=== PATIENT | female | born 1955 | race Caucasian/White ===

== ENCOUNTER 2019-03-07 12:09 | Emergency (ER) | payer MEDICAID, OTHER ==
[~2019-03-07] VITALS: Ht 162.6 cm; Wt 75.7 kg
[2019-03-07] MEDS ORDERED: COZAAR25 MG ORAL (12:14)
[2019-03-07] MEDS ORDERED: SYNTHROID112 MCG ORAL (12:14)
--- NOTE | 2019-03-07 12:20 | NUR ---
ED Nurse Note: PT WALKED IN TO ER TODAY FROM HOME. AOX4. PT C/O SOB FOLLOWED BY PALPITATIONS X AROUND 0930 THIS MORNING. AT BEDSIDE, HR ELEVATED AT 108. NO SIGNS OF RESPIRATORY DISTRESS, RETRACTIONS, OR ACCESSORY MUSCLE USE NOTED. PT ABLE TO SPEAK IN FULL SENTENCES. RR17, O2SAT 98% ON RA.
[2019-03-07 12:21] VITALS: BP 118/62
--- NOTE | 2019-03-07 12:27 | NUR ---
HAND-OFF: REPORT GIVEN TO INOCENCIO AVILA.
--- NOTE | 2019-03-07 12:28 | NUR ---
ED Nurse Note: Received patien tin bed, resting comfortably, patient is reading magazine, on polisher eyeglass frames, vital signs stable.
--- NOTE | 2019-03-07 12:34 | Emergency Room Report ---
History of Present Illness General Chief Complaint: Palpitations Source: Patient Present Illness HPI 63-year-old female presents with shortness of breath that started prior to arrival, patient was walking on 30 miles she felt dyspneic, she had dyspnea on exertion, no chest pain aggravating factors exertion alleviating factors rest, severity moderate, intermittent, she reports mild chest discomfort, she has a history of hypertension hyperlipidemia Allergies: Coded Allergies: No Known Allergies (Unverified , 03/07/19) Patient History Past Medical History: see triage record Reviewed Nursing Documentation: PMH: Agreed; PSxH: Agreed Nursing Documentation-PMH Past Medical History: No History, Except For Hx Hypertension: Yes Review of Systems All Other Systems: negative except mentioned in HPI Physical Exam Vital Signs Date Time Temp Pulse Resp B/P (MAP) Pulse Ox O2 Delivery O2 Flow Rate FiO2 03/07/19 12:12 98.2 111 18 120/64 (82) 96 Room Air Sp02 EP Interpretation: reviewed, normal General Appearance: well appearing, no apparent distress, alert Head: normocephalic, atraumatic Eyes: bilateral eye PERRL, bilateral eye EOMI ENT: uvula midline, moist mucus membranes Neck: supple, thyroid normal, supple/symm/no masses Respiratory: lungs clear, no respiratory distress, no retraction, no accessory muscle use Cardiovascular #1: normal peripheral pulses, no edema, no gallop, no murmur, tachycardia Gastrointestinal: non tender, soft, no guarding, no rebound Musculoskeletal: normal inspection Neurologic: alert, oriented x3 Psychiatric: mood/affect normal Skin: no rash, warm/dry Medical Decision Making Diagnostic Impression: Primary Impression: Palpitations Additional Impression: Chest pain Qualified Codes: R07.9 - Chest pain, unspecified ER Course No evidence pulmonary embolism, pneumothorax, pneumonia. Historically not abrupt in onset, tearing or ripping, pulses symmetric, no evidence of aortic dissection. Patient with chest pain and shortness of breath concerning for ACS Patient currently has no chest pain aspirin was given We will admit patient for observation Patient accepted by Dr. Diaz 2:20pm Patient to be transferred to [facility] Laboratory Tests Test 03/07/19 12:45 03/07/19 12:50 Urine Color Yellow Urine Appearance Clear Urine pH 7 (4.5-8.0) Urine Specific [place] 1.005 (1.005-1.035) Urine Protein Negative (NEGATIVE) Urine Glucose (UA) Negative (NEGATIVE) Urine Ketones Negative (NEGATIVE) Urine Blood 1+ (NEGATIVE) H Urine Nitrite Negative (NEGATIVE) Urine Bilirubin Negative (NEGATIVE) Urine Urobilinogen Normal MG/DL (0.0-1.0) Urine Leukocyte Esterase 1+ (NEGATIVE) H Urine RBC 0-2 /HPF (0 - 2) Urine WBC 0-2 /HPF (0 - 2) Urine Squamous Epithelial Cells Few /LPF (NONE/OCC) Urine Bacteria Occasional /HPF (NONE) White Blood Count 9.8 K/UL (4.8-10.8) Red Blood Count 4.57 M/UL (4.20-5.40) Hemoglobin 15.0 G/DL (12.0-16.0) Hematocrit 44.1 % (37.0-47.0) Mean Corpuscular Volume 97 FL (80-99) Mean Corpuscular Hemoglobin 32.8 PG (27.0-31.0) H Mean Corpuscular Hemoglobin Concent 34.0 G/DL (32.0-36.0) Red Cell Distribution Width 12.0 % (11.6-14.8) Platelet Count 324 K/UL (150-450) Mean Platelet Volume 6.3 FL (6.5-10.1) L Neutrophils (%) (Auto) 61.0 % (45.0-75.0) Lymphocytes (%) (Auto) 27.5 % (20.0-45.0) Monocytes (%) (Auto) 8.6 % (1.0-10.0) Eosinophils (%) (Auto) 1.4 % (0.0-3.0) Basophils (%) (Auto) 1.6 % (0.0-2.0) Prothrombin Time 9.7 SEC (9.30-11.50) Prothrombin Time INR 0.9 (0.9-1.1) PTT 25 SEC (23-33) Sodium Level 140 MMOL/L (136-145) Potassium Level 4.4 MMOL/L (3.5-5.1) Chloride Level 104 MMOL/L (98-107) Carbon Dioxide Level 26 MMOL/L (21-32) Anion Gap 10 mmol/L (5-15) Blood Urea Nitrogen 20 mg/dL (7-18) H Creatinine 0.8 MG/DL (0.55-1.30) Estimate Glomerular Filtration Rate > 60 mL/min (>60) Glucose Level 109 MG/DL (74-106) H Calcium Level 9.5 MG/DL (8.5-10.1) Magnesium Level 1.8 MG/DL (1.8-2.4) Total Bilirubin 0.6 MG/DL (0.2-1.0) Aspartate Amino Transferase (AST) 41 U/L (15-37) H Alanine Aminotransferase (ALT) 34 U/L (12-78) Alkaline Phosphatase 80 U/L (46-116) Total Creatine Kinase 94 U/L (26-308) Creatine Kinase MB 1.1 NG/ML (0.0-3.6) Creatine Kinase MB Relative Index 1.1 Troponin I 0.018 ng/mL (0.000-0.056) Pro-B-Type Natriuretic Peptide 181 pg/mL (0-125) H Total Protein 7.2 G/DL (6.4-8.2) Albumin 4.0 G/DL (3.4-5.0) Globulin 3.2 g/dL Albumin/Globulin Ratio 1.3 (1.0-2.7) Lipase 189 U/L (73-393) Thyroid Stimulating Hormone (TSH) 3.834 uiU/mL (0.358-3.740) Free Thyroxine 0.88 NG/DL (0.76-1.46) Free Triiodothyronine 2.5 pg/mL (2.3-4.2) Urine Opiates Screen Negative (NEGATIVE) Urine Barbiturates Screen Negative (NEGATIVE) Phencyclidine (PCP) Screen Negative (NEGATIVE) Urine Amphetamines Screen Negative (NEGATIVE) Urine Benzodiazepines Screen Negative (NEGATIVE) Urine Cocaine Screen Negative (NEGATIVE) Urine Marijuana (THC) Screen Negative (NEGATIVE) EKG Diagnostic Results EKG Time: 12:24 EP Interpretation: Sinus tachycardia, rate 108, QTc 447, no acute ST elevations , left axis dev Rhythm Strip Diag. Results Rhythm Strip Time: 12:33 EP Interpretation: yes Rate: 109 Rhythm: other - Sinus tachycardia no PVC no ectopy Chest X-Ray Diagnostic Results Chest X-Ray Diagnostic Results : Chest X-Ray Ordered: Yes # of Views/Limited/Complete: 1 View Indication: Shortness of Breath EP Interpretation: Yes Interpretation: no consolidation, no effusion, no pneumothorax, no acute cardiopulmonary disease Impression: No acute disease Electronically Signed by: Carlos Delgado MD Last Vital Signs Date Time Temp Pulse Resp B/P (MAP) Pulse Ox O2 Delivery O2 Flow Rate FiO2 03/07/19 12:21 98.4 108 17 118/62 98 Room Air Disposition: XFER [facility] Pres Condition: Stable Carlos Delgado MD Mar 07, 2019 12:34
[2019-03-07 13:10] LABS: APPEARANCE,URINE CLEAR; BILIRUBIN, URINE NEGATIVE (NEGATIVE); GLUCOSE, URINE (UA) NEGATIVE (NEGATIVE); KETONES,URINE NEGATIVE (NEGATIVE); LEUKOCYTE ESTERASE ,URINE 1+ (NEGATIVE); NITRITE,URINE NEGATIVE (NEGATIVE); PH,URINE 7 (4.5-8.0); PROTEIN,URINE NEGATIVE (NEGATIVE); UROBILINOGEN,URINE NORMAL MG/DL (0.0-1.0)
[2019-03-07 13:11] LABS: BASOPHILS % (AUTO) 1.6 % (0.0-2.0); EOSINOPHILS % (AUTO) 1.4 % (0.0-3.0); HEMATOCRIT 44.1 % (37.0-47.0); LYMPHOCYTES % (AUTO) 27.5 % (20.0-45.0); MEAN CORPUSCULAR VOLUME 97 FL (80-99); MONOCYTES % (AUTO) 8.6 % (1.0-10.0); PLATELET COUNT 324 K/UL (150-450); RED BLOOD COUNT 4.57 M/UL (4.20-5.40); WHITE BLOOD COUNT 9.8 K/UL (4.8-10.8)
[2019-03-07 13:13] LABS: COLOR,URINE YELLOW
[2019-03-07 13:21] LABS: INR 0.9 (0.9-1.1)
[2019-03-07 13:24] LABS: ANION GAP 10 mmol/L (5-15); BLOOD UREA NITROGEN 20 mg/dL (7-18); CALCIUM 9.5 MG/DL (8.5-10.1); CARBON DIOXIDE 26 MMOL/L (21-32); CHLORIDE 104 MMOL/L (98-107); CREATININE 0.8 MG/DL (0.55-1.30); POTASSIUM 4.4 MMOL/L (3.5-5.1); SODIUM 140 MMOL/L (136-145)
[2019-03-07 13:25] VITALS: BP 128/62
[2019-03-07 13:38] LABS: ALANINE AMINOTRANSFERASE 34 U/L (12-78); ALBUMIN/GLOBULIN RATIO 1.3 (1.0-2.7); ALKALINE PHOSPHATASE 80 U/L (46-116); ASPARTATE AMINO TRANSFERASE 41 U/L (15-37); BILIRUBIN,TOTAL 0.6 MG/DL (0.2-1.0); CKMB 1.1 NG/ML (0.0-3.6); CREATINE KINASE 94 U/L (26-308)
--- NOTE | 2019-03-07 14:21 | Diagnostic Imaging Report ---
Indication: Cough Technique: One view of the chest Comparison: none Findings: Lungs and pleural spaces are clear. Heart size is normal Impression: No acute process
--- NOTE | 2019-03-07 16:00 | NUR ---
ED Nurse Note: Glasco and water provided to patient as patient requested. Dr Karley parker for patient eating.
[2019-03-07 16:38] VITALS: BP 132/72
--- NOTE | 2019-03-07 16:44 | NUR ---
ED Nurse Note: Report given to Marta PAINTER at [facility] Endorsed all plan of care to Marta PAINTER.
[2019-03-07 17:56] VITALS: BP 132/72
--- NOTE | 2019-03-07 17:56 | NUR ---
ED Nurse Note: Patient is being transferred to [facility] via [facility] ambulance with all of her belongings.
--- NOTE | 2019-03-10 15:24 | Cardiology Report ---
APPROVED REPORT EKG Measurement Heart [id number] 130P [id number] Sinus tachycardia Otherwise normal ECG
== END 2019-03-07 17:56 | disposition short-term general hospital (02) ==
LOC: EMR 12:29
DX: R00.2 Palpitations (principal); R07.9 Chest pain, unspecified; R06.00 Dyspnea, unspecified; I10 Essential (primary) hypertension; E78.5 Hyperlipidemia, unspecified
CPT/HCPCS: 36415; 71045; 80053; 80307; 81003; 82550; 82553; 83690; 83735; 83880; 84439; 84443; 84481; 84484; 85025; 85610; 85730; 93005; 96360; 99285

== ENCOUNTER 2019-07-09 14:55 | Emergency (ER) | payer MEDICAID ==
[~2019-07-09] VITALS: Ht 162.6 cm; Wt 74.8 kg
[~2019-07-09 14:55] MED LIST: COZAAR25 MG ORAL; SYNTHROID112 MCG ORAL
[2019-07-09] MEDS ORDERED: Vancomycin 1.5 GM in NS 275 ML IVPB ONE (16:15)
[2019-07-09] MEDS ORDERED: HYDROcodone/Acetamin 5/325 tab ORAL ONE (16:15)
--- NOTE | 2019-07-09 16:15 | Emergency Room Report ---
History of Present Illness General Chief Complaint: Skin Rash/Abscess Source: Patient Present Illness HPI 63-year-old female presents to the emergency department complaining of 8 out of 10 severity tenderness, swelling, erythema and warmth to discrete areas on the left upper arm the right ankle and the right cheek x3 days. 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 Patient states that 2 of the locations are correlated with sites where she had previous surgeries. Patient reports the surgeries were performed in 2000 without complications. She denies fevers or chills. She reports mild headache without nausea, vomiting, neck pain or stiffness. pt. denies fevers, chills or swollen tender lymph nodes. Denies lesions/rashes elsewhere on the body. Denies new medications or body washes or creams. Denies swelling of the lips, tongue , throat or airway. Denies wheezing , or shortness of breath. Denies recent travel, recent illness or ill contacts. denies blisters, oral lesions, or sloughing of the skin Allergies: Coded Allergies: No Known Allergies (Unverified , 03/07/19) Patient History Past Medical History: see triage record, psych hx Past Surgical History: other - left forearm and right lateral ankle Pertinent Family History: none Last Menstrual Period: na Now: No Reviewed Nursing Documentation: PMH: Agreed; PSxH: Agreed Nursing Documentation-PMH Past Medical History: No History, Except For Hx Hypertension: Yes History Of Psychiatric Problem: Yes - depression Review of Systems All Other Systems: negative except mentioned in HPI Physical Exam Vital Signs Date Time Temp Pulse Resp B/P (MAP) Pulse Ox O2 Delivery O2 Flow Rate FiO2 07/09/19 15:06 99.5 104 18 127/64 (85) 97 Room Air Sp02 EP Interpretation: reviewed, normal General Appearance: no apparent distress, alert, GCS 15, non-toxic Head: normocephalic, atraumatic Eyes: bilateral eye normal inspection, bilateral eye PERRL ENT: hearing grossly normal, normal voice Neck: full range of motion Respiratory: lungs clear, normal breath sounds, speaking full sentences Cardiovascular #1: regular rate, rhythm, no edema Genitourinary: no CVA tenderness Musculoskeletal: back normal, normal range of motion, gait/station normal, tender - left forearm and lateral right ankle. -ST erythema and warmth abouth old surgical scar. Neurologic: alert, motor strength/tone normal, oriented x3, sensory intact, responsive, speech normal Psychiatric: judgement/insight normal Skin: other - left forearm and lateral right ankle with associated-ST erythema and warmth abouth old surgical scar. there is small area of erythema and warmth to the right cheek, no palpable fluctuance in any of the sites. Lymphatic: no adenopathy Medical Decision Making PA Attestation Dr. Barba is my supervising Physician whom patient management has been discussed with. Diagnostic Impression: Primary Impression: Cellulitis of multiple sites ER Course 63-year-old female presents to the emergency department complaining of 8 out of 10 severity tenderness, swelling, erythema and warmth to discrete areas on the left upper arm the right ankle and the right cheek x3 days. 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 Patient states that 2 of the locations are correlated with sites where she had previous surgeries. Patient reports the surgeries were performed in 2000 without complications. She denies fevers or chills. She reports mild headache without nausea, vomiting, neck pain or stiffness. pt. denies fevers, chills or swollen tender lymph nodes. Denies lesions/rashes elsewhere on the body. Denies new medications or body washes or creams. Denies swelling of the lips, tongue , throat or airway. Denies wheezing , or shortness of breath. Denies recent travel, recent illness or ill contacts. denies blisters, oral lesions, or sloughing of the skin Ddx considered but are not limited to cellulitis, Necrotizing fasciitis, allergic reaction, burn, dermatitis, fracture, d/L, gout, osteomyelitis, septicemia just to name a few Vital signs: are WNL, pt. is afebrile H&PE are most consistent with cellulitis of multiple sites will administer loading dose of IV antibiotics and check labs. ORDERS: -CBC: WNL -BMP: WNL -UA: WNL ED INTERVENTIONS: -Vancomycin 1g IV -[place] PO Discussed with this patient that we will try outpatient oral antibiotics and to have a 48-hour wound check with either her PCP or back here at the emergency department. Discussed with patient that if she has worsening of her current symptoms to return immediately to the ED. DISCHARGE: At this time pt. is stable for d/c to home. Will provide printed patient care instructions, and any necessary prescriptions. Care plan and follow up instructions have been discussed with the patient prior to discharge. Labs Test 07/09/19 15:25 07/09/19 16:45 Urine Color Yellow Urine Appearance Clear Urine pH 6 (4.5-8.0) Urine Specific [place] 1.010 (1.005-1.035) Urine Protein Negative (NEGATIVE) Urine Glucose (UA) Negative (NEGATIVE) Urine Ketones 1+ (NEGATIVE) Urine Blood 1+ (NEGATIVE) Urine Nitrite Negative (NEGATIVE) Urine Bilirubin Negative (NEGATIVE) Urine Urobilinogen Normal MG/DL (0.0-1.0) Urine Leukocyte Esterase Negative (NEGATIVE) Urine RBC 2-4 /HPF (0 - 2) Urine WBC 0-2 /HPF (0 - 2) Urine Squamous Epithelial Cells Few /LPF (NONE/OCC) Urine Bacteria Few /HPF (NONE) White Blood Count 10.8 K/UL (4.8-10.8) Red Blood Count 3.94 M/UL (4.20-5.40) Hemoglobin 12.8 G/DL (12.0-16.0) Hematocrit 36.5 % (37.0-47.0) Mean Corpuscular Volume 93 FL (80-99) Mean Corpuscular Hemoglobin 32.5 PG (27.0-31.0) Mean Corpuscular Hemoglobin Concent 35.0 G/DL (32.0-36.0) Red Cell Distribution Width 10.4 % (11.6-14.8) Platelet Count 362 K/UL (150-450) Mean Platelet Volume 5.9 FL (6.5-10.1) Neutrophils (%) (Auto) 63.4 % (45.0-75.0) Lymphocytes (%) (Auto) 24.9 % (20.0-45.0) Monocytes (%) (Auto) 8.3 % (1.0-10.0) Eosinophils (%) (Auto) 1.9 % (0.0-3.0) Basophils (%) (Auto) 1.5 % (0.0-2.0) Sodium Level 138 MMOL/L (136-145) Potassium Level 3.6 MMOL/L (3.5-5.1) Chloride Level 102 MMOL/L (98-107) Carbon Dioxide Level 26 MMOL/L (21-32) Anion Gap 10 mmol/L (5-15) Blood Urea Nitrogen 10 mg/dL (7-18) Creatinine 0.6 MG/DL (0.55-1.30) Estimat Glomerular Filtration Rate > 60 mL/min (>60) Glucose Level 90 MG/DL (74-106) Calcium Level 8.7 MG/DL (8.5-10.1) Last Vital Signs Date Time Temp Pulse Resp B/P (MAP) Pulse Ox O2 Delivery O2 Flow Rate FiO2 07/09/19 15:06 99.5 104 18 127/64 (85) 97 Room Air Disposition: HOME, SELF-CARE Condition: Stable Scripts Ibuprofen* (MOTRIN*) 600 Mg Tablet 600 MG ORAL THREE TIMES A DAY, #30 TAB 0 Refills Prov: Celina Joya 07/09/19 Acetaminophen With Codeine (T#3) (TYLENOL #3 TAB*) Y Tab 1 TAB ORAL Q6H PRN for For Pain, #6 TAB Prov: Celina Joya 07/09/19 Clindamycin Hcl (CLINDAMYCIN HCL) 300 Mg Capsule 300 MG ORAL FOUR TIMES A DAY for 7 Days, #28 CAP Prov: Celina Joya 07/09/19 Patient Instructions: Cellulitis, [id number] Additional Instructions: 48 HOUR RE-CHECK Take medications as directed. Follow up with a Primary Care Provider, URGENT CARE, OR ED WITHIN 48 Hours For WOUND CHECK, even if your symptoms have resolved. Return sooner to ED if new symptoms occur, or current symptoms become worse. - Please note that this Emergency Department Report was dictated using [employer] disability teacher technology software, occasionally this can lead to erroneous entry secondary to interpretation by the dictation equipment. Celina Joya Jul 09, 2019 16:15
[2019-07-09 17:05] VITALS: BP 127/64
[2019-07-09 17:17] LABS: BASOPHILS % (AUTO) 1.5 % (0.0-2.0); EOSINOPHILS % (AUTO) 1.9 % (0.0-3.0); HEMATOCRIT 36.5 % (37.0-47.0); HEMOGLOBIN 12.8 G/DL (12.0-16.0); LYMPHOCYTES % (AUTO) 24.9 % (20.0-45.0); MEAN CORPUSCULAR VOLUME 93 FL (80-99); MONOCYTES % (AUTO) 8.3 % (1.0-10.0); NEUTROPHILS % (AUTO) 63.4 % (45.0-75.0); PLATELET COUNT 362 K/UL (150-450); RED BLOOD COUNT 3.94 M/UL (4.20-5.40); RED CELL DISTRIBUTION WIDTH 10.4 % (11.6-14.8); WHITE BLOOD COUNT 10.8 K/UL (4.8-10.8)
[2019-07-09 17:42] LABS: ANION GAP 10 mmol/L (5-15); BLOOD UREA NITROGEN 10 mg/dL (7-18); CALCIUM 8.7 MG/DL (8.5-10.1); CARBON DIOXIDE 26 MMOL/L (21-32); CHLORIDE 102 MMOL/L (98-107); CREATININE 0.6 MG/DL (0.55-1.30); POTASSIUM 3.6 MMOL/L (3.5-5.1); SODIUM 138 MMOL/L (136-145)
[2019-07-09 18:30] LABS: APPEARANCE,URINE CLEAR; BILIRUBIN, URINE NEGATIVE (NEGATIVE); GLUCOSE, URINE (UA) NEGATIVE (NEGATIVE); KETONES,URINE 1+ (NEGATIVE); LEUKOCYTE ESTERASE ,URINE NEGATIVE (NEGATIVE); NITRITE,URINE NEGATIVE (NEGATIVE); PH,URINE 6 (4.5-8.0); PROTEIN,URINE NEGATIVE (NEGATIVE); UROBILINOGEN,URINE NORMAL MG/DL (0.0-1.0)
[2019-07-09 18:33] LABS: COLOR,URINE YELLOW
[2019-07-09] MEDS ORDERED: CLINDAMYCIN HC300 MG ORAL (18:59)
[2019-07-09] MEDS ORDERED: IBUPROFEN600 MG ORAL (19:00)
[2019-07-09] MEDS ORDERED: ACETAMINOPHEN-1 EAC1 ORAL (19:00)
[2019-07-09 19:19] VITALS: BP 124/68
[2019-07-11] MEDS ORDERED: IBUPROFEN600 MG ORAL (17:41)
[2019-07-11] MEDS ORDERED: MUPIROCIN15 GM TOPIC (17:41)
[2019-07-11] MEDS ORDERED: ROBAXIN-500MG ORAL (17:41)
== END 2019-07-09 19:20 | disposition home or self-care (01) ==
LOC: EMR 15:05
DX: L03.114 Cellulitis of left upper limb (principal); L03.115 Cellulitis of right lower limb; L03.211 Cellulitis of face; I10 Essential (primary) hypertension; F32.9 Major depressive disorder, single episode, unspecified; Z86.14 Personal history of Methicillin resistant Staphylococcus aureus infection; R51 Headache
CPT/HCPCS: 36415; 80048; 81003; 85025; 96365; 96366; J3370; J7050; Z7502; 99284

== ENCOUNTER 2019-08-23 07:40 | Emergency (ER) | payer MEDICAID ==
[~2019-08-23] VITALS: Ht 162.6 cm; Wt 70.3 kg
[~2019-08-23 07:40] MED LIST changes: +ACETAMINOPHEN-1 EAC1 ORAL; +CLINDAMYCIN HC300 MG ORAL; +IBUPROFEN600 MG ORAL; +MUPIROCIN15 GM TOPIC; +ROBAXIN-500MG ORAL
--- NOTE | 2019-08-23 07:42 | NUR ---
pt. not in room
--- NOTE | 2019-08-23 08:02 | NUR ---
ED Nurse Note: Patient states she fell from a stool on Monday while changing a light bulb and landed in a sitting position on her sacral area. Patient has large, diffuse bruise. States it is painful and itches, but denies any trouble walking. Patient AxO x 4, no s/s of acute distress. Dr. Crandall at bedside.
[2019-08-23 08:10] VITALS: BP 139/84
[2019-08-23] MEDS ORDERED: ACETAMINOPHEN-1 EAC1 ORAL (08:10)
[2019-08-23 08:12] VITALS: BP 139/84
--- NOTE | 2019-08-23 08:12 | NUR ---
ER DISCHARGE NOTE: Patient is cleared to be discharged per ERMD, pt is aox4, on room air, with stable vital signs. pt was given dc and prescription instructions, pt was able to verbalize understanding, pt id band. pt is able to ambulate with steady gait. pt took all belongings.
--- NOTE | 2019-08-23 08:44 | Emergency Room Report ---
History of Present Illness General Chief Complaint: Multiple Trauma/Fall Source: Patient Present Illness HPI 63-year-old female presents ED for evaluation of bruise to her buttocks. States that last Monday she had a mechanical fall and landed on her buttock. Notes is been bruised and swollen since. Pain is dull, 7 out of 10, nonradiating. Denies any hip pain. Denies any leg pain. Is able to walk without difficulty. No other aggravating relieving factors. Denies any other associated symptoms Allergies: Coded Allergies: No Known Allergies (Unverified , 03/07/19) Patient History Past Medical History: HTN, seizures Past Surgical History: none Pertinent Family History: none Social History: Denies: smoking, alcohol use, drug use Now: No Immunizations: UTD Reviewed Nursing Documentation: PMH: Agreed; PSxH: Agreed Nursing Documentation-PMH Past Medical History: No History, Except For Hx Hypertension: Yes Hx Seizures: Yes Review of Systems All Other Systems: negative except mentioned in HPI Physical Exam Vital Signs Date Time Temp Pulse Resp B/P (MAP) Pulse Ox O2 Delivery O2 Flow Rate FiO2 08/23/19 07:46 98.2 107 19 139/84 (102) 99 Room Air Sp02 EP Interpretation: reviewed, normal General Appearance: no apparent distress, alert, GCS 15, non-toxic Head: normocephalic Eyes: bilateral eye normal inspection, bilateral eye PERRL ENT: normal ENT inspection Neck: normal inspection Respiratory: normal inspection Cardiovascular #1: normal inspection Gastrointestinal: normal inspection Rectal: deferred Genitourinary: no CVA tenderness Musculoskeletal: back normal, normal range of motion, gait/station normal, non- tender Neurologic: alert, motor strength/tone normal, oriented x3, sensory intact, responsive, speech normal Psychiatric: judgement/insight normal, memory normal, mood/affect normal, no suicidal/homicidal ideation Skin: other - healing bruise to bilateral buttocks. no erythema/induration Lymphatic: normal inspection Medical Decision Making Diagnostic Impression: Primary Impression: Traumatic hematoma of buttock Qualified Codes: S30.0XXA - Contusion of lower back and pelvis, initial encounter ER Course Hospital Course 63 yo F presents to ED c/o bruising to buttocks x 1 week Differential diagnoses include: Cellulitis, dermatitis, insect bite, abscess Clinical course Patient placed on stretcher. After initial history, physical exam reveals a elderly female in no acute distress. On exam there appears to be a healing hematoma to the bilateral buttocks. No induration or erythema. No discharge. No hip pain. No back pain. I discussed findings with patient. Afebrile, nontoxic-appearing. It appears to be healing as there are areas of yellowish discoloration which indicate healing and resolution I encourage warm compresses. Will discharge home. I will provide referrals. Will prescribe Tylenol 3 for pain. Diagnosis - traumatic hematoma of buttock stable and discharged to home with prescription for Tylenol #3. Instructed to followup with PMD. Instructed return to ED if symptoms recur or worsen Last Vital Signs Date Time Temp Pulse Resp B/P (MAP) Pulse Ox O2 Delivery O2 Flow Rate FiO2 08/23/19 08:12 98.2 99 19 139/84 99 Room Air Status: improved Disposition: HOME, SELF-CARE Condition: Stable Referrals: [facility] Patient Instructions: Hematoma, [id number] Orlando Crandall MD Aug 23, 2019 08:43
== END 2019-08-23 08:15 | disposition home or self-care (01) ==
LOC: EMR 08:12
DX: S30.0XXA Contusion of lower back and pelvis, initial encounter (principal); I10 Essential (primary) hypertension; G40.909 Epilepsy, unspecified, not intractable, without status epilepticus; W01.0XXA Fall on same level from slipping, tripping and stumbling without subsequent striking against object, initial encounter; Y93.9 Activity, unspecified; Y92.9 Unspecified place or not applicable
CPT/HCPCS: 99281

== ENCOUNTER 2020-01-23 17:58 | Emergency (ER) | payer MEDICAID ==
[~2020-01-23] VITALS: Ht 162.6 cm; Wt 68.0 kg
[2020-01-23 18:20] VITALS: BP 136/75
--- NOTE | 2020-01-23 18:40 | Diagnostic Imaging Report ---
EXAM: CT Head Without Intravenous Contrast CLINICAL HISTORY: Headache. Injury. TECHNIQUE: Axial computed tomography images of the head/brain without intravenous contrast. CTDI is 53.4 mGy and DLP is 1 or 9 8.9 mGy-cm. One or more of the following dose reduction techniques were used: automated exposure control, adjustment of the mA and/or kV according to patient size, use of iterative reconstruction technique. COMPARISON: None. FINDINGS: Brain: Minimal small vessel disease of aging. No abnormal extra-axial collection. No hemorrhage. Midline shift: No midline shift or mass-effect. Ventricles: There is prominence of the ventricular system, cortical sulci, basilar cisterns, compatible with age related atrophy. Bones/joints: The calvarium is unremarkable. No acute fracture. Soft tissues: A 1.3 cm right occipital scalp hematoma is noted. Sinuses: Visualized sinuses are unremarkable. Mastoid air cells: Mastoid air cells are well pneumatized. IMPRESSION: 1. 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 2. No acute intracranial pathology. 3. If there is concern for etiology such as early acute lacunar infarct, magnetic resonance imaging of the brain with diffusion-weighted sequences should be performed. 4. Small right occipital scalp hematoma.
--- NOTE | 2020-01-23 19:01 | Emergency Room Report ---
History of Present Illness General Chief Complaint: Laceration Source: Patient Present Illness HPI 64-year-old female with history of hypertension currently controlled with medication here status post head laceration. Reports that she had her head tilted down garbage can last night at 9 PM as she hit the back of her head to the top portion of the garbage bag. Patient reports that she passed out after. A lot of dried blood noted in the head. Reports that she took Tylenol earlier today for pain and decided to come to the ED later tonight. Denies any dizziness, nausea vomiting, bleeding at this time. Denies any blurry vision. Is up-to-date with tetanus shot. Reports that she cannot take any ibuprofen as she is on aspirin and does not want to have her blood. Patient does not want her hair to be cut. A 1 cm laceration noted on posterior parietal occipital region which is already closing through secondary intention. Patient speaking full sentences, neurovascularly intact. Allergies: Coded Allergies: No Known Allergies (Unverified , 03/07/19) COVID-19 Screening Contact w/high risk pt: No Experienced COVID-19 symptoms?: No COVID-19 Testing performed RESOLUTE PROFESSIONAL: No Patient History Past Medical History: see triage record Past Surgical History: none Pertinent Family History: none Now: No Immunizations: UTD Reviewed Nursing Documentation: PMH: Agreed; PSxH: Agreed Nursing Documentation-PMH Hx Hypertension: Yes Hx Seizures: Yes Review of Systems All Other Systems: negative except mentioned in HPI Physical Exam Vital Signs Date Time Temp Pulse Resp B/P (MAP) Pulse Ox O2 Delivery O2 Flow Rate FiO2 01/23/20 18:03 98.8 114 16 133/66 (88) 96 Room Air Sp02 EP Interpretation: reviewed General Appearance: no apparent distress, alert, GCS 15, non-toxic Head: other - 1 cm closing laceration posterior occipital parietal lobe Eyes: bilateral eye normal inspection, bilateral eye PERRL ENT: hearing grossly normal, normal pharynx, no angioedema, normal voice Neck: full range of motion, supple/symm/no masses Respiratory: chest non-tender, lungs clear, normal breath sounds, no rhonchi, speaking full sentences Cardiovascular #1: regular rate, rhythm, no edema Gastrointestinal: normal bowel sounds, non tender, soft, non-distended, no guarding, no rebound Genitourinary: no CVA tenderness Musculoskeletal: back normal Neurologic: alert, motor strength/tone normal, oriented x3, sensory intact, responsive, speech normal Psychiatric: judgement/insight normal, memory normal, mood/affect normal, no suicidal/homicidal ideation Skin: laceration - Closing laceration posterior occipital parietal lobe Lymphatic: no adenopathy Medical Decision Making PA Attestation All diagnosis and treatment plans were discussed and reviewed by my supervising physician Dr. Seymour Diagnostic Impression: Primary Impression: Laceration of head Additional Impression: Head contusion ER Course 64-year-old female with history of hypertension currently controlled with medication here status post head laceration. Reports that she had her head tilted down garbage can last night at 9 PM as she hit the back of her head to the top portion of the garbage bag. Patient reports that she passed out after. A lot of dried blood noted in the head. Reports that she took Tylenol earlier today for pain and decided to come to the ED later tonight. Denies any dizziness, nausea vomiting, bleeding at this time. Denies any blurry vision. Is up-to-date with tetanus shot. Reports that she cannot take any ibuprofen as she is on aspirin and does not want to have her blood. Patient does not want her hair to be cut. A 1 cm laceration noted on posterior parietal occipital region which is already closing through secondary intention. Patient speaking full sentences, neurovascularly intact. Ddx considered but are not limited to: cerebral hematoma, concussion, skull fracture, head contusion, deep laceration, superficial laceration Vital signs: are WNL, pt. is afebrile H&PE are most consistent with: Superficial closing laceration scalp, head contusion ORDERS: head CT no contrast, Keflex, Tylenol ED INTERVENTIONS: Wound clean and dressed, as it is too late for reinaldo this is 21 hours later post laceration. First dose of Keflex and Tylenol DISCHARGE: At this time pt. is stable for d/c to home. Will provide printed patient care instructions, and any necessary prescriptions. Care plan and follow up instructions have been discussed with the patient prior to discharge. Patient take medication as directed, follow primary care provider, increase oral hydration, if worsening symptoms return to the emergency room CT/MRI/US Diagnostic Results CT/MRI/US Diagnostic Results : Imaging Test Ordered: Head CT no contrast Impression 1. 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 2. No acute intracranial pathology. 3. If there is concern for etiology such as early acute lacunar infarct, magnetic resonance imaging of the brain with diffusion-weighted sequences should be performed. 4. Small right occipital scalp hematoma. Last Vital Signs Date Time Temp Pulse Resp B/P (MAP) Pulse Ox O2 Delivery O2 Flow Rate FiO2 01/23/20 18:20 98.5 83 16 136/75 97 Room Air Disposition: HOME, SELF-CARE Condition: Stable Scripts Acetaminophen* (TYLENOL EXTRA STRENGTH*) 500 Mg Tablet 500 MG ORAL Q6H PRN for Mild Pain/Temp > 100.5, #30 TAB 0 Refills Prov: Ra Madrid 01/23/20 Cephalexin* (KEFLEX*) 500 Mg Capsule 500 MG ORAL EVERY 6 HOURS for 7 Days, #28 CAP Prov: Ra Madrid 01/23/20 Referrals: NON PHYSICIAN (PCP) Patient Instructions: Laceration Care, Adult Additional Instructions: Take medication as directed, follow-up with your primary care provider, if worsening symptoms return to the emergency room Ra Madrid Jan 23, 2020 19:01
[2020-01-23] MEDS ORDERED: TYLENOL EXTRA500 MG ORAL (19:02)
[2020-01-23] MEDS ORDERED: CEPHALEXIN500 MG ORAL (19:02)
[2020-01-23 19:15] VITALS: BP 136/75
[2020-01-23] MEDS ORDERED: Cephalexin 500mg cap ORAL ONE (19:15)
[2020-01-23] MEDS ORDERED: Acetaminophen 500mg (ES) tab ORAL ONE (19:15)
== END 2020-01-23 19:20 | disposition home or self-care (01) ==
LOC: EMR 18:32
DX: S01.01XA Laceration without foreign body of scalp, initial encounter (principal); I10 Essential (primary) hypertension; G40.909 Epilepsy, unspecified, not intractable, without status epilepticus; W22.8XXA Striking against or struck by other objects, initial encounter; Y93.89 Activity, other specified; Y92.9 Unspecified place or not applicable
CPT/HCPCS: 70450; Z7502; 99284

== ENCOUNTER 2020-08-26 22:36 | Emergency (ER) | payer MEDICAID ==
[~2020-08-26] VITALS: Ht 162.6 cm; Wt 63.5 kg
[~2020-08-26 22:36] MED LIST changes: +CEPHALEXIN500 MG ORAL; +TYLENOL EXTRA500 MG ORAL
--- NOTE | 2020-08-26 22:50 | NUR ---
ED Nurse Note: Patient walked in to the ED complaining of toothache from the left side of her mouth that started this morning. Patient reports that she has braces, has not had a clean in over a year due to the pandemic. Denies any fever, chills. AOX4, cooperative.
[2020-08-26] MEDS ORDERED: AMOXICILLIN500 MG ORAL (23:12)
--- NOTE | 2020-08-26 23:12 | Emergency Room Report ---
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 Patient states she fell asleep on her left face and thinks that her braces pushed into the left cheek, causing "swelling". She took one amoxicillin that she had leftover at home, which she states drastically improved her symptoms. She denies fever, neck pain/stiffness, photophobia, headache, vision changes, visual blurring, stridor, drooling, difficulty swallowing, shortness of breath, wheezing, chest pain, abdominal pain, back pain or any other symptoms. She states that she has regular follow-up with a dentist which she will see in the morning. The patient's symptoms were gradual onset, severity was moderate, duration since 1 day. Quality: Swollen Past medical history: Anxiety, hypertension, dyslipidemia, hypothyroidism Past surgical history: Left arm orthopedic surgery, right ankle orthopedic surgery, PAD surgery, tonsillectomy, breast augmentation Smoking: Denies Alcohol use: Occasional Drug use: Denies Review of systems: CONST: No fevers or chills, No night sweats PULMONARY: No productive cough, No shortness of breath CARDIAC: No chest pain, No palpitations GI: No vomiting, No diarrhea , No melena_or_BRBPR : No dysuria, No hematuria, No discharge NEURO: No new_focal_weakness_or_numbness, No confusion, No vision changes 14 point Review of Systems is otherwise negative except per HPI Physical Exam: GENERAL: Awake_alert_ nontoxic, no acute distress Spo2 99% on RA -normal EYES: Extraocular muscles are intact. Conjunctivae clear. Lids without swelling ENT: No hoarse voice, drooling, stridor, or trismus. Trace amount of left facial cellulitis. No brawny submandibular edema or indication of Anoop a ngina. Speaks in full and complete sentences. Poor dentition. Multiple dental caries. No visualized tonsillar exudate. No soft palate/hard palate edema. No tenderness to palpation over anterior trachea. Uvula is midline. External nose and ear normal_in_appearance. Oropharynx clear. Head_atraumatic, Moist_oral_mucosa NECK: No JVD. No meningismus. No thyromegaly. Supple. Trachea midline RESP: Normal respiratory effort. Symmetric rise. No stridor. Clear_to_auscultation_No_rales_No_wheezes CARDIAC: Regular rate and regular rhytm. No_significant pedal edema. ABDOMEN: Soft. Nondistended. Nontender_No_rebound_or_guarding. MSK: Normal muscle tone, without rigidity. Extremities without asymmetric deformity or swelling. SKIN: Warm and dry. No visible cyanosis or pallor NEUROLOGIC: Alert, oriented x3. Motor_and_sensation_grossly_intact. No truncal ataxia. Gait_normal Psych: Normal mood and affect, normal judgment and insight - COORDINATION OF CARE Case was discussed with: Patient Medical Decision Making/Plan: Differential diagnosis includes dental caries, Burns 2 fracture, facial cellulitis, viral pharyngitis, strep pharyngitis, viral syndrome, without evidence of retropharyngeal abscess, epiglottitis, peritonsillar abscess, Larry wig's angina, among others. No evidence for meningitis or encephalitis. On exam, patient has trace amount of left facial cellulitis. No discrete abscess palpated. Suspect odontogenic infectious source secondary to poor dentition. She has reliable outpatient follow-up for dentist and will likely require tooth extraction and tooth cleaning. No evidence of airway compromise, patient tolerating orals without any respiratory distress, no drooling or stridor. No evidence of any emergent ENT condition. Patient received her first dose of amoxicillin here in emergency department. Will discharge with Rx for amoxicillin. Patient advised to see a dentist in 12 hours. Patient appears stable for discharge home and follow-up with her regular doctor. Pertinent results reviewed with the patient. I educated the patient on the current treatment plan including the risks, benefits, and alternatives. I also discussed the extent and limitations of the current evaluation. The patient expressed understanding and agreement with plan. I recommended PMD follow-up within 1-2 days. Also advised that the patient return to the Emergency Department as soon as possible if they experience any new, persistent, or worsening symptoms. 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 COVID-19 Screening: Negative COVID-19 COVID-19 Testing Source: [facility] Patient History Now: No Nursing Documentation-PMH Hx Hypertension: Yes Hx Seizures: Yes Physical Exam Vital Signs Date Time Temp Pulse Resp B/P (MAP) Pulse Ox O2 Delivery O2 Flow Rate FiO2 08/26/20 22:47 98.4 90 20 138/78 (98) 98 Sp02 EP Interpretation: reviewed, normal Medical Decision Making Diagnostic Impression: Primary Impression: Facial abscess Additional Impressions: Tooth ache Dental caries Last Vital Signs Date Time Temp Pulse Resp B/P (MAP) Pulse Ox O2 Delivery O2 Flow Rate FiO2 08/26/20 22:47 98.4 90 20 138/78 (98) 98 Disposition: HOME, SELF-CARE Admit Decision Time: 23:11 Condition: Stable Scripts Amoxicillin* (AMOXIL*) 500 Mg Capsule 500 MG ORAL THREE TIMES A DAY, #21 CAP Prov: Dinorah Seymour D.O. 08/26/20 Referrals: NON PHYSICIAN (PCP) Patient Instructions: Cellulitis, [id number], Dental Pain Additional Instructions: Instructions for patient/guest experience specialist: Follow up with your dentist in 1-2 days. Follow-up with your doctor sooner if your condition requires a more timely cli nical reevaluation. Return to the emergency department immediately if you feel that your condition is worsening or if you have any new or concerning symptoms. Review your discharge instructions and take any prescriptions given as instructed. [facility] PROVIDES FREE OR LOW-COST HEALTH SERVICES TO PEOPLE WHO CAN SHOW PROOF THAT THEY LIVE IN [facility]. TO FIND MORE CLINICS PARTNERED WITH THE [facility] TO PROVIDE SERVICE, PLEASE CALL . Dinorah Seymour D.O. Aug 26, 2020 23:12
--- NOTE | 2020-08-26 23:25 | NUR ---
ER DISCHARGE NOTE: Patient is cleared to be discharged per ERMD, pt is aox4, on room air, with stable vital signs. pt was given dc and prescription instructions, pt was able to verbalize understanding, pt id band removed. pt is able to ambulate with steady gait. pt took all belongings.
[2020-08-26 23:38] VITALS: BP 138/78
== END 2020-08-26 23:25 | disposition home or self-care (01) ==
LOC: EMR 23:00
DX: L02.01 Cutaneous abscess of face (principal); K08.89 Other specified disorders of teeth and supporting structures; K02.9 Dental caries, unspecified; I10 Essential (primary) hypertension; G40.909 Epilepsy, unspecified, not intractable, without status epilepticus; F41.9 Anxiety disorder, unspecified; E78.5 Hyperlipidemia, unspecified; E03.9 Hypothyroidism, unspecified
CPT/HCPCS: 99282